=== PATIENT | female | born 1945 | race Caucasian/White ===

== ENCOUNTER → 2023-07-17 | Day surgery (SDC) | payer OTHER, MEDICARE | END | disposition home or self-care (01) | LOC: FRADUS-SUR 13:08 | PROVIDERS: ATTEND Legal Medicine | PROC: 0HBU3ZX Excision of Left Breast, Percutaneous Approach, Diagnostic (ICD-10-PCS; principal; 2023-07-17) | DX: N60.12 Diffuse cystic mastopathy of left breast (principal); N60.32 Fibrosclerosis of left breast; N60.82 Other benign mammary dysplasias of left breast; N63.20 Unspecified lump in the left breast, unspecified quadrant | CPT/HCPCS: 19085; 77065-TC; 88305-TC; A4648 ==